=== PATIENT | female | born 1940 | race Caucasian/White ===

== ENCOUNTER 2023-09-25 08:00 | Outpatient (CLI) | payer MEDICARE, OTHER | END 2023-09-25 23:59 | disposition home or self-care (01) | LOC: LAB.N 08:00 | PROVIDERS: ATTEND Physician Assistant Medical | DX: N30.00 Acute cystitis without hematuria (principal) | CPT/HCPCS: 87086 ==

== ENCOUNTER 2023-09-29 18:55 | Emergency (ER) | payer MEDICARE, OTHER ==
[2023-09-29 19:16] LABS: BILIRUBIN,URINE NEGATIVE (NEGATIVE); GLUCOSE, URINE (UA) NEGATIVE (NEGATIVE); KETONES,URINE (UA) NEGATIVE (NEGATIVE); LEUKOCYTE ESTERASE, URINE NEGATIVE (NEGATIVE); NITRITE,URINE NEGATIVE (NEGATIVE); OCCULT BLOOD,URINE NEGATIVE (NEGATIVE); PH,URINE 5.5 PH (5.0-7.5); PROTEIN,URINE NEGATIVE (NEGATIVE); UROBILINOGEN,URINE 0.2 (NORMAL) E.U./dL (NORMAL)
[2023-09-29 19:18] LABS: CLARITY,URINE CLEAR (CLEAR)
--- NOTE | 2023-09-29 19:19 | ED Physician Documentation ---
PD HPI FEMALE - Stated complaint Stated Complaint: GI - Chief complaint Chief Complaint: UTI - History obtained from History obtained from: Patient - Additional information Additional information: Went to [facility] with UTI sx. Given keflex, cx grew enterococcus. Not better. Review of Systems Constitutional: denies: Fever, Chills GI: denies: Abdominal Pain : reports: Dysuria, Frequency PD PAST MEDICAL HISTORY - Past Medical History Past Medical History: Yes Cardiovascular: Hypertension - Past Surgical History Past Surgical History: No - Present Medications Home Medications: Ambulatory Orders Medication Instructions Recorded Confirmed Ciprofloxacin [Cipro] 250 mg PO Q12H #10 tablet 09/29/23 - Allergies Allergies/Adverse Reactions: Allergies Allergy/AdvReac Type Severity Reaction Status Date / Time No Known Drug Allergies Allergy Verified 09/29/23 19:18 - Social History Does the pt smoke?: No Smoking Status: Never smoker Does the pt drink ETOH?: No Does the pt have substance abuse?: No - Immunizations Immunizations are current?: Yes PD ED PE NORMAL - Vitals Vital signs reviewed: Yes - General General: Alert and oriented X 3, No acute distress - Abdomen Abdomen: Non tender - Back Back: No CVA TTP Results - Vitals Vitals: Vital Signs - 24 hr 09/29/23 19:08 Temperature 36.5 C Heart Rate 60 Respiratory 16 Rate Blood Pressure 180/68 H O2 Saturation 100 Oxygen O2 Source Room air - Labs Labs: Laboratory Tests 09/29/23 19:05 Urine Color YELLOW Urine Clarity CLEAR Urine pH 5.5 Ur Specific [place] 1.015 Urine Protein NEGATIVE Urine Glucose (UA) NEGATIVE Urine Ketones NEGATIVE Urine Occult Blood NEGATIVE Urine Nitrite NEGATIVE Urine Bilirubin NEGATIVE Urine Urobilinogen 0.2 (NORMAL) Ur Leukocyte Esterase NEGATIVE Ur Microscopic Review NOT INDICATED Urine Culture Comments NOT INDICATED PD Medical Decision Making - ED course ED course: Not surprising no improvement with keflex given enterococcus not sensitive to cephaloporins. Departure - Departure Disposition: 01 Home, Self Care Clinical Impression: Cystitis Condition: Good Record reviewed to determine appropriate education?: Yes Instructions: ED UTI Cystitis Female Prescriptions: Ciprofloxacin [Cipro] 250 mg PO Q12H #10 tablet Comments: I sent your prescription electronically to [facility] in [place]. Return if worse. Forms: PCP List
[2023-09-29] MEDS: CIPROFLOXACIN 250 MG TABLET PO STA (19:30)
[2023-09-29 19:35] VITALS: BP 180/68; O2SAT 100
== END 2023-09-29 19:30 | disposition home or self-care (01) ==
LOC: ED 18:55
DX: N30.90 Cystitis, unspecified without hematuria (principal); B95.2 Enterococcus as the cause of diseases classified elsewhere
CPT/HCPCS: 81003; 99283; A9270; 81001; 87086